=== PATIENT | male | born 1965 | race Two or more races ===

== ENCOUNTER → 2025-03-18 | Outpatient (CLI) | payer MEDICAID, SELFPAY ==
--- NOTE | 2025-03-18 08:45 | XR_ITS ---
Examination: Transrectal prostate sonography TECHNIQUE: Grayscale transrectal sonographic images prostate Date and time: March 18, 2025 0851 hours INDICATIONS: Rectal pain one month. FINDINGS: Prostate 4.3 x 2.8 x 4.2 cm: 27 cc Small calcifications No prostate nodules IMPRESSION: Prostate volume 27 cc, no prostate nodules
== END | disposition home or self-care (01) ==
PROVIDERS: PCP Nurse Practitioner Family; Referring Provider Nurse Practitioner Family; Visit Provider Nurse Practitioner Family
DX: K62.89 Other specified diseases of anus and rectum (principal); R35.0 Frequency of micturition
CPT/HCPCS: 76872